=== PATIENT | female | born 1955 | race African-American/Black ===

== ENCOUNTER 2017-12-23 15:26 | Emergency (ER) | payer MEDICARE, MEDICAID ==
[~2017-12-23] VITALS: Ht 157.5 cm; Wt 79.4 kg
[~2017-12-23 15:26] MED LIST: ABILIFY; ABILIFY 5 MG TAB5 MG; ADULT LOW DOSE81 MG PO; AZITHROMYCIN PO; BACTRIM DS TAB1 EACH PO; BRINTELLIX10 MG; BUDEPRION SR150 MG PO; CELEXA; CENTRUM SILVER1 EAC1 PO; CHLORTHALIDONE25 MG; CLARITIN10 MG PO; CLEOCIN HCL300 MG PO; COZAAR 25 MG TA25 M1 PO; CYPROHEPTADINE 44 MG; DESYREL150 MG PO; DIAZEPAM 2MG TAB2 MG OR; DIAZEPAM 5 MG5 M1 OR; EZETIMIBE; FLONASE 0.05%50 MCG NASAL; HYDROCODON-ACE1 EAC7 PO; HYDROXYZINE HCL50 MG PO; JANUVIA100 MG PO; KEFLEX500 MG PO; LISINOPRIL5 MG PO; LORTAB 5 MG/5001 TA1 PO; METFORMIN ER 5500 M1 PO; MIRAPEX0.125 MG PO; NITROFURANTOIN100 MG PO; NORCO 5-325 TA1 EACH PO; NORFLEX100 MG PO; PERCOCET 5-3251 EACH PO; PHENERGAN 25 MG25 M1 PO; PRAMIPEXOLE0.125 MG; PREDNISONE 20 M20 M1 PO; PREDNISONE50 MG PO; PRILOSEC20 MG PO; PROVENTIL IH; RANITIDINE; SIMVASTATIN; SIMVASTATIN40 MG PO; TESSALON200 MG PO; ULTRAVATE50 GM TP; VALIUM5 MG PO; WELCHOL 625 MG625 MG; WELLBUTRIN 100100 MG; ZANTAC 150MG T150 MG PO; ZESTRIL2.5 MG PO; ZETIA10 MG; ZOFRAN ODT4 MG SUBLING
[2017-12-23 16:25] LABS: ABSOLUTE BASOPHILS 0.1 thou/uL (0.0-0.2); ABSOLUTE LYMPHOCYTES 1.6 thou/uL (0.8-5.3); ABSOLUTE MONOCYTES 0.5 thou/uL (0.0-1.2); ABSOLUTE NEUTROPHILS 5.7 thou/uL (1.6-8.1); BASOPHILS 0.8 %; EOSINOPHILS 0.3 %; HEMATOCRIT 42.6 % (37.0-47.0); HEMOGLOBIN 14.2 gm/dL (12.0-15.0); LYMPHOCYTES 20.7 %; MCH 29.4 pg (26.0-34.0); MCHC 33.4 g/dL (28.0-37.0); MONOCYTES 5.8 %; MPV 7.9 fl. (7.2-11.1); NUCLEATED RBCS 0 /100WBC; PLATELET COUNT* 391 thou/uL (150-400); POLYS 72.4 %; RBC 4.84 mil/uL (4.20-5.00); RDW-CV 13.4 % (10.5-14.5); WBC 7.9 thou/uL (4.0-11.0)
[2017-12-23 16:30] LABS: ANION GAP 10 mmol/L (7-16); BUN 19 mg/dL (7-18); CALCIUM 9.7 mg/dL (8.5-10.1); CHLORIDE 96 mmol/L (98-107); CO2 30 mmol/L (21-32); CREATININE 1.2 mg/dL (0.6-1.3); GLUCOSE 174 mg/dL (70-99); POTASSIUM 3.4 mmol/L (3.5-5.1); SODIUM 136 mmol/L (136-145)
[2017-12-23] MEDS ORDERED: FISH OIL 1,001000 M2 PO (16:31)
[2017-12-23] MEDS ORDERED: ATORVASTATIN CA40 MG PO (16:31)
[2017-12-23] MEDS ORDERED: COZAAR 25 MG TA25 M1 PO (16:32)
[2017-12-23] MEDS ORDERED: SINGULAIR 10 MG10 M1 PO (16:34)
[2017-12-23] MEDS ORDERED: TRAZODONE HCL100 MG PO (16:35)
[2017-12-23] MEDS ORDERED: FLEXERIL PO (16:35)
[2017-12-23] MEDS ORDERED: BREO ELLIPTA 11 EACH INH (16:36)
[2017-12-23 16:37] LABS: ALBUMIN 4.2 g/dL (3.4-5.0); ALKALINE PHOSPHATASE 117 U/L (46-116); LIPASE 212 U/L (73-393); SGOT 20 U/L (15-37); SGPT 19 U/L (30-65); TOTAL BILIRUBIN 0.5 mg/dL (<0.1-1.0); TOTAL PROTEIN 8.5 g/dL (6.4-8.2); TROPONIN-I LEVEL <0.06 ng/mL (<0.06)
[2017-12-23 18:01] LABS: URINE BILIRUBIN NEGATIVE (Negative); URINE BLOOD 1+ (Negative); URINE CLARITY CLEAR; URINE COLOR YELLOW; URINE GLUCOSE-RANDOM NEGATIVE (Negative); URINE KETONES 1+ (Negative); URINE LEUKOCYTES-REFLEX NEGATIVE (Negative); URINE NITRITE-REFLEX NEGATIVE (Negative); URINE PROTEIN 1+ (Negative); URINE SPECIFIC GRAVITY 1.025 (1.005-1.030); URINE UROBILINOGEN 0.2 E.U./dl (0.2-1.0)
[2017-12-23] MEDS ORDERED: ZOFRAN4 MG PO (18:04)
[2017-12-23 18:11] LABS: MUCUS None Seen strn/LPF (None Seen); SQUAMOUS >10 Many /LPF (0-3)
[2017-12-23 18:12] LABS: CRYSTALS None Seen /LPF (None Seen); HYALINE CASTS 0-3 Few /LPF (None Seen)
[2017-12-23 18:13] LABS: BACTERIA-REFLEX 1-9 Few /HPF (None Seen); URINE RBC 3-10 Few /HPF (0-2)
[2017-12-23 18:25] LABS: URINE WBC-REFLEX 0-5 Rare /HPF (0-5)
[2017-12-23 18:37] VITALS: BP 142/66
--- NOTE | 2017-12-24 10:03 | EKG ---
[place] [address] ELECTROCARDIOGRAM REPORT Name: YENY JAFFE Room: [facility]#: [id number] Admission: 12/23/17 Attend Phys: Discharge: 12/23/17 Date of : 57 Report #: [id number] THIS REPORT FOR: //name// [facility] ED Test Date: 2017-12-23 Test Time: 16:27:27 Pat Name: YENY JAFFE Department: Room: Gender: F Athletic Trainer: John FLOOD : 1955 Requested By: Becky Beckford Order Number: [id number] MD: Dean Russell Measurements Intervals Cisco Rate: 67 P: 12 KS: 154 QRS: 4 QRSD: 90 T: 17 QT: 415 QTc: 438 Interpretive Statements Sinus rhythm Left atrial enlargement Compared to ECG 12/10/2014 14:47:35 no change Electronically Signed On 12-24-2017 10:03:17 CDT by Dean Russell [email or web address] <ELECTRONICALLY SIGNED> By: Dean Russell MD, [facility] 12/24/17 [id number] Dean Russell MD, FACC /EPI
== END 2017-12-23 18:39 | disposition home or self-care (01) ==
LOC: M.ERS 15:26
PROVIDERS: Nurse Practitioner Family
DX: R11.2 Nausea with vomiting, unspecified (principal); R19.7 Diarrhea, unspecified; R10.9 Unspecified abdominal pain; F32.9 Major depressive disorder, single episode, unspecified; K21.9 Gastro-esophageal reflux disease without esophagitis; E78.5 Hyperlipidemia, unspecified; E11.9 Type 2 diabetes mellitus without complications; E78.00 Pure hypercholesterolemia, unspecified; F41.9 Anxiety disorder, unspecified; I10 Essential (primary) hypertension; F17.210 Nicotine dependence, cigarettes, uncomplicated; Z90.49 Acquired absence of other specified parts of digestive tract; Z87.442 Personal history of urinary calculi; Z88.6 Allergy status to analgesic agent